=== PATIENT | male | born 1995 | race Hispanic/Latino ===

== ENCOUNTER 2022-02-28 14:49 | Emergency (ER) | payer BC ==
[~2022-02-28] VITALS: Ht 175.3 cm; Wt 117.5 kg
[2022-02-28] MEDS ORDERED: IOPAMIDOL 370 MG/ML 100 ML INFUS..BTL INJ ONE ×2 (15:27→17:38)
[2022-02-28] MEDS ORDERED: IBUPROFEN 600 MG TAB PO STA (18:32)
[2022-02-28] MEDS ORDERED: SODIUM CHLORIDE 0.9% 1000ML 1,000 ML IV SCH (18:45)
[2022-02-28] MEDS ORDERED: ZITHROMAX250 MG PO (19:46)
[2022-02-28] MEDS ORDERED: PREDNISONE20 MG PO (19:46)
[2022-02-28] MEDS ORDERED: BROMFED DM COU118 ML PO (19:46)
== END 2022-02-28 20:05 | disposition home or self-care (01) ==
LOC: FSED 14:59
DX: R50.9 Fever, unspecified (principal); U07.1 COVID-19; J20.9 Acute bronchitis, unspecified; R06.00 Dyspnea, unspecified; R05.9 Cough, unspecified; F17.210 Nicotine dependence, cigarettes, uncomplicated
CPT/HCPCS: 71260; 80053; 82553; 84484; 85025; 99284; J7030; Q9967